=== PATIENT | male | born 1980 | race Caucasian/White ===

== ENCOUNTER → 2017-03-19 | Outpatient (CLI) | payer OTHER ==
[~2017-03-19] VITALS: Ht 182.9 cm; Wt 85.7 kg
[~2017-03-19] MED LIST: DESO0.0557 EX; LIDOCAINE 2% INJ 100 MG/5 ML SDV (FOR ANES.) As Ordered ONE; NS 1,000 ML IV SCH; PROPOFOL 200 MG/20 ML VIAL As Ordered ONE; SUMA25TA3 PO; ZYRT10CA PO
--- NOTE | 2017-03-19 12:34 | ROOR ---
Patient Name: Melo Isabel Procedure Date: 03/19/2017 11:49 AM Date of : 1980 Age: 36 Room: [facility] Gender: Male Note Status: Finalized Procedure: Colonoscopy Indications: Clinically significant diarrhea of unexplained origin Providers: Vasu Martins MD Referring MD: ARIEL GEORGE MD Requesting Provider: Medicines: Monitored Anesthesia Care Complications: No immediate complications. Procedure: Pre-Anesthesia Assessment: - Prior to the procedure, a History and Physical was performed, and patient medications and allergies were reviewed. The patient is competent. The risks and benefits of the procedure and the sedation options and risks were discussed with the patient. All questions were answered and informed consent was obtained. Patient identification and proposed procedure were verified by the physician, the nurse and the anesthesiologist in the endoscopy suite. Mental Status Examination: alert and oriented. Airway Examination: normal oropharyngeal airway and neck mobility. Respiratory Examination: clear to auscultation. CV Examination: normal. Prophylactic Antibiotics: The patient does not require prophylactic antibiotics. Prior Anticoagulants: The patient has taken no previous anticoagulant or antiplatelet agents. ASA Grade Assessment: I - A normal, healthy patient. After reviewing the risks and benefits, the patient was deemed in satisfactory condition to undergo the procedure. The anesthesia plan was to use monitored anesthesia care (MAC). Immediately prior to administration of medications, the patient was re-assessed for adequacy to receive sedatives. The heart rate, respiratory rate, oxygen saturations, blood pressure, adequacy of pulmonary ventilation, and response to care were monitored throughout the procedure. The physical status of the patient was re-assessed after the procedure. The Colonoscope was introduced through the anus and advanced to the terminal ileum, with identification of the appendiceal orifice and IC valve. The colonoscopy was performed without difficulty. The patient tolerated the procedure well. The quality of the bowel preparation was excellent. Findings: The perianal and digital rectal examinations were normal. The terminal ileum appeared normal. This was biopsied with a cold forceps for histology. Estimated blood loss was minimal. The colon (entire examined portion) appeared normal. This was biopsied with a cold forceps for histology. Estimated blood loss was minimal. No additional abnormalities were found on retroflexion. Impression: - The examined portion of the ileum was normal. Biopsied. - The entire examined colon is normal. Biopsied. Recommendation: - Discharge patient to home (ambulatory). - Advance diet as tolerated. - Telephone my office for pathology results in 2 weeks. Vasu Martins MD Vasu Martins MD 03/19/2017 12:34:36 PM This report has been signed electronically. Number of Addenda: 0 Note Initiated On: 03/19/2017 11:49 AM Estimated Blood Loss: Estimated blood loss was minimal.
[2017-03-19 13:00] VITALS: BP 122/72
== END | disposition home or self-care (01) ==
LOC: M OPP 11:26
PROVIDERS: ATTEND Surgery
DX: R19.7 Diarrhea, unspecified (principal); R12 Heartburn; R14.0 Abdominal distension (gaseous); M25.50 Pain in unspecified joint; G43.909 Migraine, unspecified, not intractable, without status migrainosus; Z91.041 Radiographic dye allergy status; Z88.8 Allergy status to other drugs, medicaments and biological substances; Z91.018 Allergy to other foods; Z79.899 Other long term (current) drug therapy; Z87.891 Personal history of nicotine dependence

== ENCOUNTER → 2018-08-21 | Outpatient (CLI) | payer OTHER | LOC: M LRY 18:24 | DX: R07.9 Chest pain, unspecified (principal) | CPT/HCPCS: G0463 ==

== ENCOUNTER 2024-06-14 06:13 | Day surgery (SDC) | payer OTHER ==
[~2024-06-14] VITALS: Ht 182.9 cm; Wt 86.2 kg
[~2024-06-14 06:13] MED LIST changes: +AMLO1TAB24 PO; +ERGO500029 PO; -LIDOCAINE 2% INJ 100 MG/5 ML SDV (FOR ANES.) As Ordered ONE; +LOSA50TA28 PO; -NS 1,000 ML IV SCH; -PROPOFOL 200 MG/20 ML VIAL As Ordered ONE; +SUMA50TA2 PO
[2024-06-14] MEDS: NS 1,000 ML IV ONE (07:16)
[2024-06-14] MEDS ORDERED: LIDOCAINE 2% 100MG/5ML SDV (FOR ANES.) As Ordered ONE (08:18)
[2024-06-14] MEDS ORDERED: propofoL 200 MG/20 ML VIAL As Ordered ONE (08:18)
[2024-06-14 08:47] VITALS: BP 121/83; O2SAT 100
== END 2024-06-14 08:47 | disposition home or self-care (01) ==
LOC: M OPP 06:13
PROVIDERS: ATTEND Internal Medicine Gastroenterology
DX: D12.5 Benign neoplasm of sigmoid colon (principal); D12.7 Benign neoplasm of rectosigmoid junction; K64.8 Other hemorrhoids; K57.30 Diverticulosis of large intestine without perforation or abscess without bleeding; K92.1 Melena; Z79.899 Other long term (current) drug therapy; Z88.6 Allergy status to analgesic agent; Z91.018 Allergy to other foods; Z91.041 Radiographic dye allergy status